=== PATIENT | male | born 1975 | race Caucasian/White ===

== ENCOUNTER 2021-01-30 00:41 | Inpatient (IN) | payer BC ==
--- NOTE | 2021-01-30 00:46 | ED Physician Documentation ---
PD HPI ABD PAIN - Stated complaint Stated Complaint: AB PX - History obtained from History obtained from: Patient - History of Present Illness Timing - onset: How many hours ago (3) Timing - duration: Hours (2-3) Timing - details: Abrupt onset, Waxing and waning Pain level now: 8 Quality: Pain Location: Epigastric Radiation: Other (does not radiate) Improved by: Laying still Worsened by: Moving, Palpation Associated symptoms: Nausea, Vomiting. No: Fever, Diarrhea, Constipation Similar symptoms before: Diagnosis (similar to previous episodes of pancreatitis) Recently seen: Clinic (seen at an urgent care clinic in [place] last week for right axillary infection, is on a prrescribed antibiotic (does not know which one), says symptoms have nearly resolved) - Additional information Additional information: patient visiting from [place] (just got to [facility] earlier today). Shortly after eating dinner (approximately 2-3 hours [employer]), he had sudden onset abdominal pain, predominantly epigastric, which he says feels similar to previous episodes of pancreatitis; he says he has had pancreatitis 6 times, often requiring hospitalization. Denies heavy/regular/recent alcohol intake. Review of Systems Constitutional: denies: Fever, Chills, Sweats Eyes: reports: Reviewed and negative Ears: reports: Reviewed and negative Nose: reports: Reviewed and negative Throat: reports: Reviewed and negative Cardiac: reports: Reviewed and negative Respiratory: reports: Reviewed and negative GI: reports: Abdominal Pain, Nausea, Vomiting. denies: Abdominal Swelling, Constipation, Diarrhea, Hematemesis, Bloody / black stool : denies: Dysuria, Frequency Skin: reports: Reviewed and negative Musculoskeletal: reports: Reviewed and negative Neurologic: reports: Reviewed and negative PD PAST MEDICAL HISTORY - Past Medical History Past Medical History: Yes GI: Pancreatitis - Past Surgical History Past Surgical History: Yes General: Cholecystectomy - Present Medications Home Medications: Ambulatory Orders Medication Instructions Recorded Confirmed Sulfamethox/Trimeth 800/160 1 tab PO BID 01/30/21 01/30/21 [Bactrim Ds] - Allergies Allergies/Adverse Reactions: Allergies Allergy/AdvReac Type Severity Reaction Status Date / Time No Known Drug Allergies Allergy Verified 01/30/21 01:10 - Living Situation Living Arrangement: reports: At home PD ED PE NORMAL - Vitals Vital signs reviewed: Yes - General General: Alert and oriented X 3, Well developed/nourished, Other (obvious painful distress, vomiting at times during H+P) - Neck Neck: Supple, no meningeal sign - Cardiac Cardiac: RRR, No murmur - Respiratory Respiratory: No respiratory distress, Clear bilaterally - Abdomen Abdomen: Soft, Non distended - Back Back: No CVA TTP - Derm Derm: Normal color, Warm and dry - Extremities Extremities: No edema - Neuro Neuro: Alert and oriented X 3 PD ED PE EXPANDED - Abdomen Abdomen: Normal Bowel sounds, Tender to palpation, Epigastric. No: Rebound Results - Vitals Vitals: Vital Signs - 24 hr 01/30/21 01/30/21 01/30/21 00:45 01:20 02:30 Temperature 36.0 C L Heart Rate 55 L 66 73 Respiratory 20 16 16 Rate Blood Pressure 125/103 H 122/82 H 109/74 O2 Saturation 99 95 98 01/30/21 02:58 Temperature Heart Rate 68 Respiratory 16 Rate Blood Pressure 123/76 O2 Saturation 98 Oxygen O2 Source Room air - Labs Labs: Laboratory Tests 01/30/21 01/30/21 01/30/21 01:06 01:06 01:06 WBC 9.3 RBC 4.92 Hgb 14.3 Hct 43.5 MCV 88.4 MCH 29.1 MCHC 32.9 RDW 12.1 Plt Count 215 MPV 10.4 Neut # (Auto) 6.6 Lymph # (Auto) 2.0 Gibson # (Auto) 0.6 Eos # (Auto) 0.1 Baso # (Auto) 0.1 Absolute Nucleated RBC 0.00 Nucleated RBC % 0.0 Sodium 136 Potassium 4.5 Chloride 99 L Carbon Dioxide 29 Anion Gap 8.0 BUN 28 H Creatinine 1.3 H Estimated GFR (MDRD) 59 L Glucose 126 H Calcium 9.0 Total Bilirubin 0.8 AST 19 ALT 20 Alkaline Phosphatase 57 Total Protein 6.9 Albumin 4.0 Globulin 2.9 Albumin/Globulin Ratio 1.4 Amylase 3907 H* Lipase 4668 H Urine Color YELLOW Urine Clarity CLEAR Urine pH 7.0 Ur Specific [place] 1.020 Urine Protein NEGATIVE Urine Glucose (UA) NEGATIVE Urine Ketones NEGATIVE Urine Occult Blood NEGATIVE Urine Nitrite NEGATIVE Urine Bilirubin NEGATIVE Urine Urobilinogen 0.2 (NORMAL) Ur Leukocyte Esterase NEGATIVE Ur Microscopic Review NOT INDICATED Urine Culture Comments NOT INDICATED Nasal Adenovirus (PCR) Nasal B. parapertussis DNA (PCR) Nasal Coronavir 229E PCR Nasal Coronavir HKU1 PCR Nasal Coronavir NL63 PCR Nasal Coronavir OC43 PCR Nasal Enterovir/Rhinovir PCR Nasal Influenza B PCR Nasal Influenza A PCR Nasal Parainfluen 1 PCR Nasal Parainfluen 2 PCR Nasal Parainfluen 3 PCR Nasal Parainfluen 4 PCR Nasal RSV (PCR) Nasal B.pertussis DNA PCR Nasal C.pneumoniae (PCR) Anjel Human Metapneumo PCR Nasal M.pneumoniae (PCR) Nasal SARS-CoV-2 (PCR) 01/30/21 04:25 WBC RBC Hgb Hct MCV MCH MCHC RDW Plt Count MPV Neut # (Auto) Lymph # (Auto) Gibson # (Auto) Eos # (Auto) Baso # (Auto) Absolute Nucleated RBC Nucleated RBC % Sodium Potassium Chloride Carbon Dioxide Anion Gap BUN Creatinine Estimated GFR (MDRD) Glucose Calcium Total Bilirubin AST ALT Alkaline Phosphatase Total Protein Albumin Globulin Albumin/Globulin Ratio Amylase Lipase Urine Color Urine Clarity Urine pH Ur Specific [place] Urine Protein Urine Glucose (UA) Urine Ketones Urine Occult Blood Urine Nitrite Urine Bilirubin Urine Urobilinogen Ur Leukocyte Esterase Ur Microscopic Review Urine Culture Comments Nasal Adenovirus (PCR) NOT DETECTED Nasal B. parapertussis DNA (PCR) NOT DETECTED Nasal Coronavir 229E PCR NOT DETECTED Nasal Coronavir HKU1 PCR NOT DETECTED Nasal Coronavir NL63 PCR NOT DETECTED Nasal Coronavir OC43 PCR NOT DETECTED Nasal Enterovir/Rhinovir PCR NOT DETECTED Nasal Influenza B PCR NOT DETECTED Nasal Influenza A PCR NOT DETECTED Nasal Parainfluen 1 PCR NOT DETECTED Nasal Parainfluen 2 PCR NOT DETECTED Nasal Parainfluen 3 PCR NOT DETECTED Nasal Parainfluen 4 PCR NOT DETECTED Nasal RSV (PCR) NOT DETECTED Nasal B.pertussis DNA PCR NOT DETECTED Nasal C.pneumoniae (PCR) NOT DETECTED Anjel Human Metapneumo PCR NOT DETECTED Nasal M.pneumoniae (PCR) NOT DETECTED Nasal SARS-CoV-2 (PCR) NOT DETECTED - Rads (name of study) CT A/P with IV contrast Radiology: Prelim report reviewed, See rad report PD MEDICAL DECISION MAKING - ED course Complexity details: reviewed results, re-evaluated patient, considered differential, d/w patient ED course: patient presents with symptoms and exam c/w pancreatitis; he says he has had many previous episodes, unknown etiology. Markedly elevated amylase and lipase, and CT demonstrates acute pancreatitis with possible small focus of pancreatic necrosis. Patient reported significant improvement after 1mg IV dilaudid and 4mg IV zofran. He eventually had return of the abdominal pain but requested morphine at low dose, wanting to avoid dilaudid (he felt he did not need this strong of a medication and was also concerned about side effects, specifically constipation). Given the significant elevations in his amylase and lipase, and the CT findings concerning for possible small focus of necrosis in setting of pancreatitis, will admit for further observation, IV fluids with NPO status, and pain medications/antinauseants as needed. Departure - Departure Disposition: [facility] DC/Xfer Clinical Impression: Pancreatitis Qualifiers: Chronicity: acute Pancreatitis type: idiopathic Acute pancreatitis complication: uninfected necrosis Qualified Code(s): K85.01 - Idiopathic acute pancreatitis with uninfected necrosis Condition: Stable Discharge Date/Time: 01/30/21 05:11
[2021-01-30] MEDS ORDERED: HYDROmorphone 1 MG/ML CARPUJECT IVP STA (00:59)
[2021-01-30] MEDS ORDERED: ONDANSETRON 4 MG/2 ML VIAL IVP STA (00:59)
[2021-01-30] MEDS ORDERED: SODIUM CHLORIDE 0.9% 500 ML IV STA (00:59)
[2021-01-30 01:18] LABS: BASOPHILS # (AUTO) 0.1 10^3/uL (0.0-0.1); BASOPHILS % (AUTO) 0.5 %; EOSINOPHILS # (AUTO) 0.1 10^3/uL (0.0-0.7); HCT - HEMATOCRIT 43.5 % (42.0-52.0); HGB - HEMOGLOBIN 14.3 g/dL (14.0-18.0); LYMPHOCYTES % (AUTO) 21.8 %; MEAN CORPUSCULAR HEMOGLOBIN 29.1 pg (27.0-31.0); MEAN CORPUSCULAR HGB CONC 32.9 g/dL (32.0-36.0); MEAN CORPUSCULAR VOLUME 88.4 fL (80.0-94.0); MEAN PLATELET VOLUME 10.4 fL (7.4-11.4); MONOCYTES # (AUTO) 0.6 10^3/uL (0.0-1.0); MONOCYTES % (AUTO) 6.1 %; NEUTROPHILS # (AUTO) 6.6 10^3/uL (1.5-6.6); NEUTROPHILS % (AUTO) 70.2 %; PLT - PLATELET COUNT 215 10^3/uL (130-450); RED BLOOD COUNT 4.92 10^6/uL (4.70-6.10); RED CELL DISTRIBUTION WIDTH 12.1 % (12.0-15.0); WHITE BLOOD COUNT 9.3 x10^3/uL (4.8-10.8)
[2021-01-30] MEDS ORDERED: IOVERSOL 320 100 ML VIAL IVP ONE ×2 (01:21→06:59)
[2021-01-30 01:25] LABS: BILIRUBIN,URINE NEGATIVE (NEGATIVE); GLUCOSE, URINE (UA) NEGATIVE (NEGATIVE); KETONES,URINE (UA) NEGATIVE (NEGATIVE); LEUKOCYTE ESTERASE, URINE NEGATIVE (NEGATIVE); NITRITE,URINE NEGATIVE (NEGATIVE); OCCULT BLOOD,URINE NEGATIVE (NEGATIVE); PROTEIN,URINE NEGATIVE (NEGATIVE); UROBILINOGEN,URINE 0.2 (NORMAL) E.U./dL (NORMAL)
[2021-01-30 01:27] LABS: CLARITY,URINE CLEAR (CLEAR)
[2021-01-30 02:31] LABS: ALBUMIN/GLOBULIN RATIO 1.4 (1.0-2.2); BILIRUBIN,TOTAL 0.8 mg/dL (0.2-1.0); CREATININE 1.3 mg/dL (0.6-1.2); POTASSIUM 4.5 mmol/L (3.5-5.0); TOTAL PROTEIN 6.9 g/dL (6.7-8.2)
[2021-01-30] MEDS ORDERED: MORPHINE 2 MG/ML CARPUJECT IVP STA (04:10)
[2021-01-30] MEDS ORDERED: oxyCODONE 5 MG TABLET PO PRN (04:26)
[2021-01-30] MEDS ORDERED: ONDANSETRON 4 MG/2 ML VIAL IVP PRN (04:26)
[2021-01-30] MEDS ORDERED: SODIUM CHLORIDE FLUSH 0.9% 10 ML SYRINGE IVP PRN (04:26)
[2021-01-30] MEDS ORDERED: ACETAMINOPHEN 325 MG TABLET PO PRN (04:26)
[2021-01-30] MEDS ORDERED: MORPHINE 2 MG/ML CARPUJECT IVP PRN (04:26)
--- NOTE | 2021-01-30 04:37 | HISTORY & PHYSICAL EXAMINATION ---
Chief Complaint - Chief Complaint Chief Complaint: epigastric/ upper abdominal pain, nausea, vomiting History of Present Illness - Admitted From Admitted From:: [facility] ED - History Obtained From Records Reviewed: yes History obtained from: patient - History of Present Illness HPI Comment/Other: Patient is a 45-year-old male with medical history significant for recurrent pancreatitis Who presented to the ED with complaint of epigastric/upper abdominal pain, nausea and vomiting. This started a few hours after dinner today. He denied chest pain, dyspnea, fever or chills at the time Upon presentation to the ED work-up included a CT of the abdomen pelvis which showed pancreatitis. Also his lipase level was 4668 and amylase 3907. He drinks occasionally and his last drink was 4 days ago. He had a can of beer. He is currently on vacation in [facility] from [place]. He denies any trauma or recent injury. He was recently on Bactrim for a right axillar skin infection. The rest of his history is unremarkable. He is being admitted for further treatment with IV hydration and pain management. History - Past Medical History GI: reports: Pancreatitis MRSA Hx?: No - Past Surgical History General: reports: Cholecystectomy - Family & Social History Family History Comment/Other: He denied any significant family history Living arrangement: At home Living Situation: With spouse/s.o. Social History Notes: He does not use tobacco products or recreational substances. He drinks alcohol occasionally/ socially - POLST Patient has POLST: No POLST Status: Full Code Meds/Allgy - Home Medications Home Medications: Ambulatory Orders Medication Instructions Recorded Confirmed Sulfamethox/Trimeth 800/160 1 tab PO BID 01/30/21 01/30/21 [Bactrim Ds] - Allergies Allergies/Adverse Reactions: Allergies Allergy/AdvReac Type Severity Reaction Status Date / Time No Known Drug Allergies Allergy Verified 01/30/21 01:10 Review of Systems - Constitutional Constitutional: denies: Fatigue, Fever, Chills - Eyes Eyes: denies: Pain - Ears, Nose & Throat Ears, Nose & Throat: denies: Ear pain - Cardiovascular Cariovascular: denies: Irregular heart rate, Chest pain, Edema, Lightheadedness, Syncope, Exertional dyspnea - Respiratory Respiratory: denies: Wheezing, SOB at rest, SOB with exertion - Gastrointestinal Gastrointestinal: reports: Abdominal pain, Nausea, Vomiting. denies: Abdominal distention, Coffee grounds emesis, Reflux/heartburn - Genitourinary Genitourinary: denies: Dysuria, Frequency, Urgency, Hematuria - Musculoskeletal Musculoskeletal: denies: Muscle pain, Back pain, Muscle aches - Integumentary Integumentary: denies: Rash, Pruritis, Lesions, Dryness - Neurological Neurological: denies: General weakness, Focal weakness, Headache - Psychiatric Psychiatric: denies: Depression, Anxiety - Endocrine Endocrine: denies: Polyuria, Polydypsia - Hematologic/Lymphatic Hematologic/Lymphatic: denies: Anemia, Bruising Prior Level of Functionality: He is independent of activities of daily Exam - Vital Signs Vital Signs: Vital Signs x48h Temp Pulse Resp BP Pulse Ox 01/30/21 02:58 68 16 123/76 98 01/30/21 02:30 73 16 109/74 98 01/30/21 01:20 66 16 122/82 H 95 01/30/21 00:45 36.0 C L 55 L 20 125/103 H 99 - Physical Exam General Appearance: positive: Alert, Mild distress, Moderate distress Eyes Bilateral: positive: PERRL, EOMI ENT: positive: Dry mucous membranes Neck: positive: No JVD, Trachea midline Respiratory: positive: Chest non-tender, No respiratory distress, Breath sounds nml. negative: Wheezes, Rales, Rhonchi Cardiovascular: positive: Regular rate & rhythm, No murmur Abdomen: positive: Nml bowel sounds, No distention, Tenderness. negative: Guarding, Rebound Back: positive: Nml inspection Skin: positive: Color nml, No rash, Warm, Dry Extremities: positive: Non-tender, Full ROM, Nml appearance, No pedal edema Neurologic/Psychiatric: positive: Oriented x3, Mood/affect nml Conclusion/Plan - Problem List (1) Pancreatitis Conclusion/Plan: Etiology undetermined. Lipase was 4668. Amylase was 3907. CT of the abdomen/pelvis confirmed acute pancreatitis and also showed a small focal area of diminished enhancement within the proximal body of the pancreas concerning for a focus of pancreatic necrosis. The patient expresses that he has had this before. We will check a lipid panel. IV hydration with normal saline at 125 mL/h. Pain management with Oxycodone or morphine as needed. Qualifiers: Chronicity: acute Pancreatitis type: idiopathic Acute pancreatitis complication: uninfected necrosis Qualified Code(s): K85.01 - Idiopathic acute pancreatitis with uninfected necrosis (2) Acute kidney injury Conclusion/Plan: Mild. Creatinine 1.3, BUN 28, estimated GFR 59. Gentle IV hydration with normal saline at 125 mL/h. - Lab Results Fish Bones: 01/30/21 01:06 01/30/21 01:06 Core Measures - Anticipated LOS I expect patient to be DC'd or transferred within 96 hours.: Yes - DVT/VTE - Prophylaxis VTE/DVT Device ordered at admit?: Yes
[2021-01-30] MEDS ORDERED: SODIUM CHLORIDE 0.9% 1,000 ML IV SCH (05:00)
[2021-01-30 05:17] LABS: B. PARAPERTUSSIS- RESP PCR PAN NOT DETECTED; B. PERTUSSIS- RESP PCR PANEL NOT DETECTED; C. PNEUMONIAE- RESP PCR PANEL NOT DETECTED; CORONAVIRUS 229E-RESP PCR NOT DETECTED; CORONAVIRUS HKU1-RESP PCR NOT DETECTED; CORONAVIRUS NL63-RESP PCR NOT DETECTED; CORONAVIRUS OC43-RESP PCR NOT DETECTED; HUMAN METAPNEUMOVIRUS NOT DETECTED; INFLUENZA A- RESP PCR PANEL NOT DETECTED; INFLUENZA B - RESP PCR PANEL NOT DETECTED; M. PNEUMONIAE- RESP PCR PANEL NOT DETECTED; PARAINFLUENZA VIRUS 1 NOT DETECTED; PARAINFLUENZA VIRUS 2 NOT DETECTED; PARAINFLUENZA VIRUS 3 NOT DETECTED; PARAINFLUENZA VIRUS 4 NOT DETECTED; RHINOVIRUS/ENTEROVIRUS NOT DETECTED; RSV- RESP PCR PANEL NOT DETECTED; SARS-CoV-2 -RESP PCR PANEL NOT DETECTED
[2021-01-30] MEDS: SODIUM CHLORIDE 0.9% 1,000 ML IV SCH ×3 (05:20→21:17)
[2021-01-30 06:39] LABS: CHOL/HDL RATIO 3.8 (<5.0); CHOLESTEROL 137 mg/dL; HDL CHOLESTEROL 36 mg/dL; LDL CHOLESTEROL,CALCULATED 65 mg/dL; LDL/HDL RATIO 1.8 (<3.6); TRIGLYCERIDES 182 mg/dL; VLDL CHOLESTEROL 36 mg/dL
--- NOTE | 2021-01-30 08:46 | CT Report ---
PROCEDURE: Abdomen/Pelvis W INDICATIONS: abdominal pain CONTRAST: IV CONTRAST: Optiray 320 ml: 100 PO CONTRAST: *NO PO CONTRAST TECHNIQUE: After the administration of intravenous contrast, 5 mm thick sections acquired from the diaphragms to the symphysis. 5 mm thick coronal and sagittal reformats were acquired. For radiation dose reducti on, the following was used: automated exposure control, adjustment of mA and/or kV according to catalina ent size. COMPARISON: None. FINDINGS: Image quality: Excellent. ABDOMEN: Lung bases: Lung bases are clear. Heart size is normal. Solid organs: Pancreas: Marked inflammatory change surrounding the head and neck and proximal body, consistent with acute pancreatitis. There is an area of diminished enhancement and thickening in the region of the p ancreatic neck/proximal body, which is suspicious for developing pancreatic necrosis. No free air. No abscess. More distally, the pancreas is normal in appearance. Splenic vein is patent. Liver and spleen are normal in size and enhancement. Gallbladder is surgically absent Biliary syste m is non dilated. No adrenal nodules. Kidneys demonstrate normal size and enhancement, without hydronephrosis. 5 cm ex ophytic right renal cyst. Peritoneum and bowel: Bowel loops demonstrate normal wall thickness and caliber. No free fluid or a ir. Nodes and vessels: No retroperitoneal or mesenteric adenopathy by size criteria. Aorta and inferior vena cava are normal in size. Miscellaneous: No ventral hernias. PELVIS: Genitourinary: Bladder wall thickness is normal. Miscellaneous: No inguinal hernias or adenopathy. Bones: No suspicious bony lesions. No vertebral body compression fractures. IMPRESSION: 1. Acute pancreatitis with suspicion of developing focal pancreatic necrosis within the neck/proximal body of the pancreas. 2. Remote cholecystectomy. A preliminary report with the above findings was provided at the time of the study by [employer]. Reviewed by: Tate Degroot MD on 01/30/2021 7:45 AM FACUNDO Approved by: Tate Degroot MD on 01/30/2021 7:45 AM FACUNDO Station ID: [id number]
[2021-01-30] MEDS: SODIUM CHLORIDE FLUSH 0.9% 10 ML SYRINGE IVP SCH ×2 (09:00→17:00)
[2021-01-31] MEDS: SODIUM CHLORIDE FLUSH 0.9% 10 ML SYRINGE IVP SCH ×2 (00:26→08:55)
[2021-01-31] MEDS: SODIUM CHLORIDE 0.9% 1,000 ML IV SCH (05:11)
[2021-01-31 05:17] LABS: BASOPHILS % (AUTO) 0.6 %; EOSINOPHILS # (AUTO) 0.1 10^3/uL (0.0-0.7); EOSINOPHILS % (AUTO) 1.7 %; HCT - HEMATOCRIT 40.5 % (42.0-52.0); HGB - HEMOGLOBIN 13.1 g/dL (14.0-18.0); LYMPHOCYTES # (AUTO) 1.4 10^3/uL (1.5-3.5); LYMPHOCYTES % (AUTO) 26.1 %; MEAN CORPUSCULAR HEMOGLOBIN 28.7 pg (27.0-31.0); MEAN CORPUSCULAR HGB CONC 32.3 g/dL (32.0-36.0); MEAN CORPUSCULAR VOLUME 88.8 fL (80.0-94.0); MEAN PLATELET VOLUME 10.4 fL (7.4-11.4); MONOCYTES # (AUTO) 0.3 10^3/uL (0.0-1.0); MONOCYTES % (AUTO) 6.4 %; NEUTROPHILS # (AUTO) 3.4 10^3/uL (1.5-6.6); NEUTROPHILS % (AUTO) 64.6 %; PLT - PLATELET COUNT 188 10^3/uL (130-450); RED BLOOD COUNT 4.56 10^6/uL (4.70-6.10); RED CELL DISTRIBUTION WIDTH 12.2 % (12.0-15.0); WHITE BLOOD COUNT 5.3 x10^3/uL (4.8-10.8)
[2021-01-31 05:30] LABS: CALCIUM 8.3 mg/dL (8.5-10.3); CREATININE 1.1 mg/dL (0.6-1.2); MAGNESIUM 2.1 mg/dL (1.7-2.8)
--- NOTE | 2021-01-31 07:11 | DISCHARGE SUMMARY ---
Discharge Summary Admit Date: 01/30/21 Discharge Date: 01/31/21 Discharging Provider: Anais Rodríguez Primary Care Provider: Out of State Code Status: Attempt Resuscitation Condition at Discharge: Stable Discharge Disposition: 01 Home, Self Care - DIAGNOSES Admission Diagnoses: Pancreatitis Acute kidney injury Discharge Diagnoses with Status of Each Condition: Pancreatitis: Acute. Improved/ Resolved Acute kidney injury: Resolved - HPI History of Present Illness: Patient is a 45-year-old male with medical history significant for recurrent pancreatitis Who presented to the ED with complaint of epigastric/upper abdominal pain, nausea and vomiting. This started a few hours after dinner today. He denied chest pain, dyspnea, fever or chills at the time Upon presentation to the ED work-up included a CT of the abdomen pelvis which showed pancreatitis. Also his lipase level was 4668 and amylase 3907. He drinks occasionally and his last drink was 4 days ago. He had a can of beer. He is currently on vacation in [facility] from [place]. He denies any trauma or recent injury. He was recently on Bactrim for a right axillar skin infection. The rest of his history is unremarkable. He is being admitted for further treatment with IV hydration and pain management. - HOSPITAL COURSE Hospital Course: CT of the abdomen/pelvis confirmed acute pancreatitis and also showed a small focal area of diminished enhancement within the proximal body of the pancreas concerning for a focus of pancreatic necrosis. Patient was maintained on IV hydration with normal saline. He was on a clear liquid diet. Pain was managed as needed. Patient's pain improved/resolved over the course of his 24-hour hospital stay. His lipase level went from 4800 down to 374. He reported having a bowel movement prior to discharge. He was discharged home in stable condition. - ALLERGIES Allergies/Adverse Reactions: Allergies Allergy/AdvReac Type Severity Reaction Status Date / Time No Known Drug Allergies Allergy Verified 01/30/21 01:10 - PHYSICAL EXAM AT DISCHARGE General Appearance: positive: No acute distress, Alert Eyes Bilateral: positive: PERRL, EOMI ENT: positive: No signs of dehydration Neck: positive: No JVD, Trachea midline Respiratory: positive: Chest non-tender, No respiratory distress, Breath sounds nml. negative: Wheezes, Rales, Rhonchi Cardiovascular: positive: Regular rate & rhythm Abdomen: positive: Non-tender, Nml bowel sounds, No distention. negative: Guarding, Rebound Back: positive: Nml inspection Skin: positive: Color nml, No rash, Warm, Dry Extremities: positive: Non-tender, Full ROM, Nml appearance, No pedal edema Neurologic/Psychiatric: positive: Oriented x3, Mood/affect nml - LABS Result Diagrams: 01/31/21 04:52 01/31/21 04:52 - TIME SPENT Time Spent in Discharge (Minutes): 20
--- NOTE | 2021-01-31 07:16 | Discharge Plan ---
Discharge Plan Problem Reviewed?: Yes Disposition: 01 Home, Self Care Condition: Stable Diet: Soft Activity Restrictions: Activity as Tolerated Shower Restrictions: No Driving Restrictions: No Health Concerns: You were admitted on 01/30/21 with epigastric/upper abdominal pain, nausea and vomiting. Work-up in the ED included lipase level which was 4668. He also had a CT of the abdomen/pelvis done which showed pancreatitis.You were treated with IV hydration which consisted of normal saline, placed on a clear liquid diet and your pain was managed as needed. Over 24 hours ER symptoms improved/resolved. He tolerated clear liquid diet well and his diet was advanced to full liquid. At the time of discharge she had no pain. You were able to have a bowel movement during your hospital stay. As a result you are being discharged home where you will continue to advance your diet as tolerated. If your symptoms return do not hesitate to return to the ED for reevaluation This plan was discussed with you. You expressed understanding and are agreeable with it. Plan of Treatment: You were admitted on 01/30/21 with epigastric/upper abdominal pain, nausea and vomiting. Work-up in the ED included lipase level which was 4668. He also had a CT of the abdomen/pelvis done which showed pancreatitis.You were treated with IV hydration which consisted of normal saline, placed on a clear liquid diet and your pain was managed as needed. Over 24 hours ER symptoms improved/resolved. He tolerated clear liquid diet well and his diet was advanced to full liquid. At the time of discharge she had no pain. You were able to have a bowel movement during your hospital stay. As a result you are being discharged home where you will continue to advance your diet as tolerated. If your symptoms return do not hesitate to return to the ED for reevaluation This plan was discussed with you. You expressed understanding and are agreeable with it. Care Goals: You were admitted on 01/30/21 with epigastric/upper abdominal pain, nausea and vomiting. Work-up in the ED included lipase level which was 4668. He also had a CT of the abdomen/pelvis done which showed pancreatitis.You were treated with IV hydration which consisted of normal saline, placed on a clear liquid diet and your pain was managed as needed. Over 24 hours ER symptoms improved/resolved. He tolerated clear liquid diet well and his diet was advanced to full liquid. At the time of discharge she had no pain. You were able to have a bowel movement during your hospital stay. As a result you are being discharged home where you will continue to advance your diet as tolerated. If your symptoms return do not hesitate to return to the ED for reevaluation This plan was discussed with you. You expressed understanding and are agreeable with it. Assessment: You were admitted on 01/30/21 with epigastric/upper abdominal pain, nausea and vomiting. Work-up in the ED included lipase level which was 4668. He also had a CT of the abdomen/pelvis done which showed pancreatitis.You were treated with IV hydration which consisted of normal saline, placed on a clear liquid diet and your pain was managed as needed. Over 24 hours ER symptoms improved/resolved. He tolerated clear liquid diet well and his diet was advanced to full liquid. At the time of discharge she had no pain. You were able to have a bowel movement during your hospital stay. As a result you are being discharged home where you will continue to advance your diet as tolerated. If your symptoms return do not hesitate to return to the ED for reevaluation This plan was discussed with you. You expressed understanding and are agreeable with it. No Smoking: If you smoke, Please STOP! Call for help.
[2021-01-31 07:38] VITALS: BP 122/81
== END 2021-01-31 09:31 | disposition home or self-care (01) | DRG 439 ==
LOC: ED 00:41 → MS3 04:26
PROVIDERS: ADMIT Internal Medicine; ATTEND Internal Medicine
DX: K85.01 Idiopathic acute pancreatitis with uninfected necrosis (principal); N17.9 Acute kidney failure, unspecified
CPT/HCPCS: 0202U; 36415; 74177; 80048; 80053; 80061; 81003; 82150; 83690; 83735; 85025; J1170; Q9967; 81001; 83721; 87086; 96374; 96375; 99284